=== PATIENT | female | born 1955 | race Caucasian/White ===

== ENCOUNTER 2018-09-23 10:21 | Observation (INO) | payer BC ==
[2018-09-23 11:20] LABS: Bilirubin Negative (Negative); Blood, Urine Negative (Negative); Clarity CLOUDY (Clear); Glucose, Urine (Dipstick) Negative (Negative); Leukocyte Negative (Negative); Nitrite Negative (Negative); Protein, Urine (Dipstick) Negative (Neg-Trace); Specific Gravity, Urine 1.016 (1.002-1.036)
[2018-09-23 11:54] LABS: #Eosinphils 0.1 thou/uL (0.0-0.7); #Monocytes 0.4 thou/uL (0.11-0.59); #Neutrophils 3.5 thou/uL (1.40-6.50); %Basophils 0.1 % (0.0-1.0); %Eosinophils 2.2 % (0.0-10.0); %Lymphocytes 33.4 % (21.0-51.0); %Monocytes 6.2 % (0.0-10.0); %Neutrophils 58.2 % (42.0-75.0); Hemoglobin 6.9 g/dL (12.0-16.0); Mean Corpuscular HGB CONC 32.8 g/dL (32.0-36.0); Mean Corpuscular Hemoglobin 28.7 pg (27.0-31.0); Mean Corpuscular Volume 87.3 fL (78.0-98.0); Mean Platelet Volume 7.7 fL (7.4-10.4); Platelet Count 271 thou/uL (130-400); RBC Distribution Width 13.5 % (11.5-14.5)
[2018-09-23] MEDS ORDERED: Lidocaine 4% Cream 5 GM TUBE w/ Tegaderm ONE (12:03)
[2018-09-23 12:19] LABS: ALT (SGPT) 12 U/L (8-55); AST (SGOT) 12 U/L (5-34); Albumin 4.1 g/dL (3.4-4.8); Alkaline Phosphatase 63 U/L (40-150); Anion Gap 17 mmol/L (10-20); BUN (Urea Nitrogen) 15 mg/dL (9.8-20.1); Bilirubin, Total 0.3 mg/dL (0.2-1.2); Calc. Creatinine Clearance 0 mL/min (70-130); Calcium 9.5 mg/dL (7.8-10.44); Carbon Dioxide 22 mmol/L (23-31); Chloride 105 mmol/L (98-107); Estimated GFR-MDRD 74; Globulin 2.4 g/dL (2.4-3.5); Glucose 106 mg/dL (80-115); Lipase 43 U/L (8-78); Potassium 3.8 mmol/L (3.5-5.1); Protein, Total 6.5 g/dL (6.0-8.3); Sodium 140 mmol/L (136-145)
[2018-09-23 14:27] LABS: Iron Binding Capacity, Total 435 mcg/dL (265-497)
[2018-09-23 14:28] LABS: Iron 133 ug/dL (50-170)
[2018-09-23 14:48] LABS: Ferritin 20.3 ng/mL (10-291); Thyroid Stimulating Hormone 2.5556 uIU/mL (0.35-4.94)
--- NOTE | 2018-09-23 14:58 | HP ---
PRIMARY CARE PHYSICIAN: Dr. Heidi Kyle. REASON FOR ADMISSION: Symptomatic anemia. HISTORY OF PRESENT ILLNESS: A 63-year-old female who has intermittent hemorrhoidal bleeding problem since 2015. Initially, problem was very very mild and not required any attention. For last few months, the patient was having increasing amount of bright red blood per rectum. The patient was referred to screw machine operator, who did upper and lower endoscopy 1 week ago. As per report, the patient was found with only hemorrhoid. The patient was given referral to General Surgery for hemorrhoidectomy. The patient reports that for last 2 weeks she has increasing amount of bleeding from her hemorrhoid, and because of the blood loss, she is experiencing dizziness, fatigue, dyspnea on exertion, palpitation, and near syncopal episode. She denies any chest pain. She denies any loss of consciousness. She is feeling extremely fatigued and tired. The patient reports that her hemoglobin was about 8.9 initially when she saw screw machine operator, and subsequently it was 8.6, and today her hemoglobin is 6.9. The patient was evaluated by Dr. Ibarra and subsequently she was instructed to go to the hospital for admission. The patient never had any blood transfusion in the past. She never had any NSAID abuse. She denies any family history of colon cancer. She denies any weight loss. She had upper and lower endoscopies 1 week ago. REVIEW OF SYSTEMS: CONSTITUTIONAL: Negative for weight loss or gain, ability to conduct usual activities. SKIN: Negative for rash, itching. EYES: Negative for double vision, pain. ENT/MOUTH: Negative for nose bleeding, neck stiffness, pain, tenderness. CARDIOVASCULAR: Negative for palpitations, dyspnea on exertion, orthopnea. RESPIRATORY: Negative for shortness of breath, wheezing, cough, hemoptysis, fever or night sweats. GASTROINTESTINAL: Negative for poor appetite, abdominal pain, heartburn, nausea, vomiting, constipation, or diarrhea. GENITOURINARY: Negative for urgency, frequency, dysuria, nocturia. MUSCULOSKELETAL: Negative for pain, swelling. NEUROLOGIC/PSYCHIATRIC: Negative for anxiety, depression. ALLERGY/IMMUNOLOGIC: Negative for skin rash, bleeding tendency. Please see my HPI for pertinent positives and negatives. All other review of systems reviewed and negative except as mentioned in HPI. PAST MEDICAL HISTORY: Hemorrhoid, hypertension, and dyslipidemia. PAST SURGICAL HISTORY: Bladder suspension x3, appendicectomy, cholecystectomy, and hysterectomy. PAST PSYCHIATRIC HISTORY: Anxiety and depression. SOCIAL HISTORY: The patient is , lives at home with family. No history of tobacco, alcohol, or illicit drug abuse. FAMILY HISTORY: No family history of coronary artery disease or stroke, but the patient's brother diagnosed with anal cancer. No family history of colon cancer. ALLERGIES: NO KNOWN DRUG ALLERGIES. CURRENT HOME MEDICATIONS: 1. Premarin 1.25 mg daily. 2. Lipitor 20 mg daily. 3. Amitriptyline 20 mg daily. 4. Ferrous sulfate 325 mg twice daily. 5. Estradiol 2 mg p.o. daily. EMERGENCY ROOM COURSE: Reviewed. PHYSICAL EXAMINATION: VITAL SIGNS: On arrival, blood pressure 161/90, pulse 112, respiratory rate 18, temperature 97.9, saturation 100% on room air, weight 95.3 kg. GENERAL: The patient is currently alert, awake, in no obvious acute distress. HEENT: Head; normocephalic, atraumatic. Eyes; pupils are round, reactive to light. Conjunctiva pale. ENT; pale mucous membranes. No oral lesion. No pharyngeal erythema. No exudate. NECK: Supple. No JVD. No thyromegaly. No carotid bruit. LUNGS: Clear to auscultation without any rhonchi or rales. CARDIAC: S1 and S2 regular. Tachycardia. Soft systolic murmur noted. No gallop. No rub. ABDOMEN: Soft. Bowel sounds present. Nontender. Nondistended. No organomegaly. No mass. No suprapubic tenderness. BACK: Unremarkable. No CVA tenderness. EXTREMITIES: Upper extremity; passive movement of all joints are normal. Lower extremity; no edema, good distal pulsation. SKIN: Pale. No rash. HEMATOLOGICAL: No lymphadenopathy. NEUROLOGIC: Nonfocal. SIGNIFICANT LABORATORY DATA: CBC; WBC 6.0, hemoglobin 6.9, platelet 271. BMP; sodium 140, potassium 3.8, chloride 105, carbon dioxide 22, anion gap 17, BUN 15, creatinine 0.79, glucose 106, calcium 9.5. LFT; AST 12, ALT 12, alkaline phosphatase 63, albumin 4.1, lipase 43. Urinalysis normal. ASSESSMENT AND PLAN: 1. Symptomatic anemia. The patient most likely has iron-deficiency anemia. The patient already had upper and lower endoscopies which were unrevealing other than hemorrhoids. The patient's history is also consistent with hemorrhoidal bleed. At this point, the patient was already given referral to General Surgery for possible hemorrhoidectomy, which will be done next week. At this point, during this admission, we will transfuse blood. We will do anemia workup. We will transfuse parenteral iron as well as we will repeat blood count tomorrow, and if the patient remains stable, then we will consider discharging her in the next 24 to 48 hours. 2. Dyslipidemia. Continue Lipitor 20 mg p.o. daily. 3. Hypertension. We will start amlodipine 5 mg p.o. daily. 4. Anxiety and depression. Continue amitriptyline 20 mg p.o. daily. 5. Deep venous thrombosis prophylaxis; no Lovenox because of bleeding. GI prophylaxis; Pepcid 20 mg p.o. b.i.d. CODE STATUS: The patient is full code. The patient's is surrogate decision maker. DISPOSITION PLAN: Based on clinical course, we are expecting the patient's stay in hospital 24 to 48 hours. Plan of care discussed with the patient and family member at bedside. Job ID: [id number]
[2018-09-23] MEDS ORDERED: Eucerin (Mineral Oil/Petrolatum,White) 30 gm Jar TOP PRN (16:02)
[2018-09-23] MEDS ORDERED: Calcium Carbonate 500 MG ChewTAB PO PRN (16:02)
[2018-09-23] MEDS ORDERED: Acetaminophen 325 MG TAB PO PRN (16:02)
[2018-09-23] MEDS ORDERED: HYDROcodone/Acetaminophen 5/325 mg Tablet PO PRN (16:02)
[2018-09-23] MEDS ORDERED: Zolpidem Tartrate 5 MG TAB PO PRN (16:02)
[2018-09-23] MEDS ORDERED: Artificial Tear Sol 15 ML BOT EA EYE PRN (16:02)
[2018-09-23] MEDS ORDERED: Bisacodyl 10 MG SUPP PR PRN (16:02)
[2018-09-23] MEDS ORDERED: Sodium Chloride 0.65% Nasal 44 ML BOT EA NARE PRN (16:02)
[2018-09-23] MEDS ORDERED: Loperamide HCl 2 MG CAP PO PRN (16:02)
[2018-09-23] MEDS ORDERED: Ondansetron ODT 4 MG TAB PO PRN (16:02)
[2018-09-23] MEDS ORDERED: Iron Sucrose Complex 200 MG in Sodium Chloride 0.9% 250 ML 250 ML IVPB SCH (16:02)
[2018-09-23] MEDS ORDERED: Loratadine 10 MG TAB PO PRN (16:02)
[2018-09-23] MEDS ORDERED: hydrALAZINE 20 MG/ML VIAL SLOW IVP PRN (16:02)
[2018-09-23] MEDS ORDERED: Ondansetron PF 4 MG/2 ML Vial IVP PRN (16:02)
[2018-09-23] MEDS ORDERED: Diabetic Tussin 200 MG/10 ML UDCUP PO PRN (16:02)
[2018-09-23] MEDS ORDERED: Cepastat Lozenges 1 LOZ PO PRN (16:02)
[2018-09-23] MEDS ORDERED: Senokot S 8.6-50 MG TAB PO PRN (16:02)
[2018-09-23] MEDS ORDERED: Amlodipine 5 MG TAB PO SCH (16:30)
[2018-09-23] MEDS ORDERED: Iron, Sodium Ferric Gluconate 250 MG in Sodium Chloride 0.9% 100 ML IVPB SCH (17:00)
[2018-09-23 17:10] VITALS: BMI 33.3
[2018-09-23 19:08] LABS: #Eosinphils 0.1 thou/uL (0.0-0.7); #Lymphocytes 2.1 thou/uL (1.20-3.40); #Monocytes 0.4 thou/uL (0.11-0.59); #Neutrophils 3.8 thou/uL (1.40-6.50); %Basophils 0.6 % (0.0-1.0); %Eosinophils 1.6 % (0.0-10.0); %Lymphocytes 32.2 % (21.0-51.0); %Monocytes 5.7 % (0.0-10.0); %Neutrophils 59.9 % (42.0-75.0); Hemoglobin 7.6 g/dL (12.0-16.0); Mean Corpuscular HGB CONC 33.4 g/dL (32.0-36.0); Mean Corpuscular Hemoglobin 29.1 pg (27.0-31.0); Mean Corpuscular Volume 87.1 fL (78.0-98.0); Mean Platelet Volume 7.3 fL (7.4-10.4); Platelet Count 251 thou/uL (130-400); RBC Distribution Width 13.4 % (11.5-14.5); White Blood Cell (WBC) Count 6.4 thou/uL (4.8-10.8)
[2018-09-23 19:13] LABS: INR-International Normal Ratio 1.1; PTT 32.9 SEC (22.9-36.1); Prothrombin Time 14.7 SEC (12.0-14.7)
[2018-09-23 19:34] LABS: ALT (SGPT) 13 U/L (8-55); AST (SGOT) 13 U/L (5-34); Albumin 3.9 g/dL (3.4-4.8); Alkaline Phosphatase 61 U/L (40-150); Anion Gap 15 mmol/L (10-20); BUN (Urea Nitrogen) 13 mg/dL (9.8-20.1); Bilirubin, Total 0.4 mg/dL (0.2-1.2); Calc. Creatinine Clearance 119 mL/min (70-130); Calcium 9.4 mg/dL (7.8-10.44); Carbon Dioxide 25 mmol/L (23-31); Chloride 106 mmol/L (98-107); Estimated GFR-MDRD 75; Globulin 2.7 g/dL (2.4-3.5); Glucose 96 mg/dL (80-115); Potassium 3.6 mmol/L (3.5-5.1); Protein, Total 6.6 g/dL (6.0-8.3); Sodium 142 mmol/L (136-145)
[2018-09-23] MEDS: Amitriptyline HCl 10 MG TAB PO SCH (20:23)
[2018-09-23] MEDS: Famotidine 20 MG TAB PO SCH (20:23)
[2018-09-23] MEDS: Atorvastatin Calcium 20 MG TAB PO SCH (20:23)
--- NOTE | 2018-09-24 01:19 | CON ---
DATE OF CONSULTATION: 09/23/2018 REASON FOR CONSULT: Hemorrhoids. HISTORY OF PRESENT ILLNESS: Ms. Cline is a 63-year-old woman with longstanding hemorrhoids which often bleed and sometimes prolapse. They usually go back in on their home, but sometimes she has to reduce them manually. She states that they have flared intermittently for many years but then 2 weeks ago, they flared and they have continued to bleed with every bowel movement or any sort of straining even to urinate. She states that there is blood in the toilet paper and in the water. She went to Dr. Ibarra, who performed an upper and lower scope on her on Wednesday. He removed a small polyp, but otherwise did not see anything abnormal in her colon. Shortly after her scope, she started bleeding again, so he went back in and all he saw were inflamed internal hemorrhoids with stigmata of recent bleeding but no active bleeding. The patient states that she is sure that the blood is coming from her rectal area and that she bleeds pretty much anytime she squats even to urinate. She has been lightheaded and dizzy for a few days. She states that she bled a lot with a bowel prep for her colonoscopy. She was found to be significantly anemic, so she was called into the hospital to be admitted for transfusion. Since being transfused, she is feeling much better. PAST MEDICAL HISTORY: Hypertension and hyperlipidemia. PAST SURGICAL HISTORY: Cholecystectomy in her 30s, hysterectomy and recent anterior and posterior repair last year, and appendectomy in the past. SOCIAL HISTORY: The patient does not smoke, drink, or use illicit drugs. She is and her is at the bedside. FAMILY HISTORY: Anal cancer, but no colon cancer. ALLERGIES: NO KNOWN DRUG ALLERGIES. OUTPATIENT MEDICATIONS: Include: 1. Premarin. 2. Lipitor. 3. Amitriptyline. 4. Iron. 5. Estradiol. REVIEW OF SYSTEMS: Ten-system review of systems is negative except per HPI. PHYSICAL EXAMINATION: VITAL SIGNS: The patient is afebrile, mildly tachycardic, although she states that her heart rate is down from before the transfusion. Blood pressure 148/67, respirations 16, and 97% saturated on room air. GENERAL: Reveals a healthy-appearing woman, in no acute distress. She is slightly pale. HEENT: Unremarkable. NECK: Supple without lymphadenopathy or thyroid nodules. HEART: Slightly tachycardic but regular. No murmurs, rubs, or gallops are appreciated. LUNGS: Clear to auscultation bilaterally. ABDOMEN: Soft, nontender, and nondistended without palpable hernias or masses. EXTREMITIES: Warm and well perfused without edema. NEUROLOGIC: No focal deficits. PSYCHIATRIC: Alert, oriented, and appropriate. Digital rectal examination was performed. No visible external hemorrhoids. Moderate to large circumferential internal hemorrhoids are palpated on anoscopy. She has multiple large internal hemorrhoids circumferentially down to the dentate line with mild prolapse and irritation of the mucosa, but no active bleeding. No palpable rectal masses. LABORATORY DATA: Hemoglobin on admission was 6.9, white count 6, platelets 271. Electrolytes were unremarkable and LFTs were normal. TSH was 2.5. Ferritin 20, iron 133. UA was clear with no blood. ASSESSMENT: Bleeding internal hemorrhoids. PLAN: Stapled hemorrhoidopexy. We discussed the relative pros and cons of stapled hemorrhoidopexy versus open hemorrhoidectomy. Since she does not have a significant external component, I favor the stapled hemorrhoidopexy as being less painful. Also, this would allow us to address the entire circumference of the anal canal, whereas I do no more than three columns in an open hemorrhoidectomy. She does understand that she has significant residual hemorrhoidal tissue after the stapled hemorrhoidopexy, addition of an open hemorrhoidectomy may be necessary. Inherent risks of the hemorrhoidopexy were discussed. These include, but are not limited to, bleeding, infection, risks of anesthesia, damage to nearby structures like the vagina and sphincter, need for other procedures and postoperative pain. Typically, this is less than with an open hemorrhoidectomy, but can still be significant. She understands the importance of maintaining a good bowel regimen postoperatively and avoiding straining and constipation. All of her questions were answered and she has been proceeded for the operating room tomorrow. Job ID: [id number]
[2018-09-24] MEDS ORDERED: Fleet Enema 133 ML BOT FS SCH (04:30)
[2018-09-24] MEDS ORDERED: Lidocaine 2% Jelly 5 ML TUBE ONE ×2 (07:21→09:16)
[2018-09-24] MEDS ORDERED: Midazolam HCl 2 mg/2 ml Vial ONE (07:21)
[2018-09-24] MEDS ORDERED: Fentanyl 100 MCG/2 ML VIAL ONE (07:21)
[2018-09-24 07:47] LABS: Anion Gap 16 mmol/L (10-20); BUN (Urea Nitrogen) 15 mg/dL (9.8-20.1); Calc. Creatinine Clearance 108 mL/min (70-130); Calcium 9.3 mg/dL (7.8-10.44); Carbon Dioxide 21 mmol/L (23-31); Chloride 106 mmol/L (98-107); Estimated GFR-MDRD 67; Glucose 98 mg/dL (80-115); Potassium 3.8 mmol/L (3.5-5.1); Sodium 139 mmol/L (136-145)
[2018-09-24] MEDS ORDERED: cefOXitin Sodium/Dextrose,Iso 2 GM in Premix Bag 1 BAG IVPB SCH (08:00)
[2018-09-24] MEDS ORDERED: Iron Sucrose Complex 200 MG in Sodium Chloride 0.9% 250 ML 250 ML IVPB SCH (08:00)
[2018-09-24 08:16] LABS: #Eosinphils 0.1 thou/uL (0.0-0.7); #Lymphocytes 1.9 thou/uL (1.20-3.40); #Monocytes 0.5 thou/uL (0.11-0.59); #Neutrophils 3.7 thou/uL (1.40-6.50); %Basophils 0.5 % (0.0-1.0); %Lymphocytes 30.2 % (21.0-51.0); %Neutrophils 59.4 % (42.0-75.0); Hemoglobin 7.9 g/dL (12.0-16.0); Mean Corpuscular HGB CONC 32.6 g/dL (32.0-36.0); Mean Corpuscular Hemoglobin 29.4 pg (27.0-31.0); Mean Corpuscular Volume 90.2 fL (78.0-98.0); Mean Platelet Volume 7.4 fL (7.4-10.4); Platelet Count 249 thou/uL (130-400); RBC Distribution Width 13.9 % (11.5-14.5); Red Blood Cell (RBC) Count 2.69 mill/uL (4.20-5.40); White Blood Cell (WBC) Count 6.2 thou/uL (4.8-10.8)
[2018-09-24] MEDS: Fish Oil 1,000 MG CAP PO SCH (09:00)
[2018-09-24] MEDS: Famotidine 20 MG TAB PO SCH ×2 (09:00→20:15)
[2018-09-24] MEDS ORDERED: Amlodipine 5 MG TAB PO SCH (09:00)
[2018-09-24] MEDS: Ferrous Sulfate 325 MG TAB PO SCH ×2 (09:00→20:15)
[2018-09-24] MEDS: Estradiol 1 MG TAB PO SCH (09:00)
[2018-09-24] MEDS ORDERED: Bupivacaine HCl 0.5%/Epinephrine 1:200,000/PF 30 ml Vial ONE (09:15)
[2018-09-24] MEDS ORDERED: Ondansetron HCl/PF 4 MG/2 ML Vial IVP PRN (09:22)
[2018-09-24] MEDS ORDERED: HYDROmorphone 2 MG/ML VIAL SLOW IVP PRN (09:22)
[2018-09-24] MEDS ORDERED: Promethazine HCl 25 MG/ML VIAL SLOW IVP PRN (09:22)
[2018-09-24] MEDS ORDERED: Promethazine HCl 25 MG/ML VIAL IM PRN (09:22)
--- NOTE | 2018-09-24 09:57 | PDOC.PN ---
- Subjective Encounter Start Date: 09/24/18 Encounter Start Time: 15:00 -: old records requested/rev Patient seen and examined. No new complaints. No overnight events - Objective Resuscitation Status - Order Detail: 09/23/18 13:59 Resuscitation Status Routine Resuscitation Status: FULL: Full Resuscitation MAR Reviewed: Yes Vital Signs & Weight: Vital Signs (12 hours) Temp Pulse Resp BP Pulse Ox 09/24/18 04:00 97.6 F 101 H 18 109/68 97 09/24/18 00:00 98.2 F 99 18 112/70 92 L Weight Weight 219 lb I&O: 09/23/18 09/24/18 09/25/18 06:59 06:59 06:59 Intake Total 600 Balance 600 Result Diagrams: 09/25/18 00:39 09/24/18 07:11 Phys Exam - Physical Examination Constitutional: NAD HEENT: PERRLA, moist MMs, sclera anicteric Neck: no JVD, supple Respiratory: no wheezing, no rales, no rhonchi Cardiovascular: RRR, no significant murmur, no rub Gastrointestinal: soft, non-tender, no distention, positive bowel sounds Musculoskeletal: no edema, pulses present Neurological: non-focal, normal sensation, moves all 4 limbs Psychiatric: normal affect, A&O x 3 Skin: no rash, normal turgor Dx/Plan (1) Symptomatic anemia Code(s): D64.9 - ANEMIA, UNSPECIFIED Status: Acute (2) Bleeding hemorrhoid Code(s): K64.9 - UNSPECIFIED HEMORRHOIDS Status: Acute (3) Anemia due to acute blood loss Code(s): D62 - ACUTE POSTHEMORRHAGIC ANEMIA Status: Acute (4) Obesity (BMI 30.0-34.9) Code(s): E66.9 - OBESITY, UNSPECIFIED Status: Chronic (5) Anxiety and depression Code(s): F41.9 - ANXIETY DISORDER, UNSPECIFIED; F32.9 - MAJOR DEPRESSIVE DISORDER, SINGLE EPISODE, UNSPECIFIED Status: Chronic (6) GERD (gastroesophageal reflux disease) Code(s): K21.9 - GASTRO-ESOPHAGEAL REFLUX DISEASE WITHOUT ESOPHAGITIS Status: Chronic (7) Dyslipidemia Code(s): E78.5 - HYPERLIPIDEMIA, UNSPECIFIED Status: Chronic - Plan cont current plan of care * today will give one dose of IV venofer * today pt is scheduled for haemorrhoids surgery * will monitor post op in hospital * medication reviewed as below * symptomatic treatment. * repeat labs tomorrow Review of Systems - Review of Systems ENT: negative: Ear Pain, Ear Discharge, Nose Pain, Nose Discharge, Nose Congestion, Mouth Pain, Mouth Swelling, Throat Pain, Throat Swelling, Other Respiratory: negative: Cough, Dry, Shortness of Breath, Hemoptysis, SOB with Excertion, Pleuritic Pain, Sputum, Wheezing Cardiovascular: negative: chest pain, palpitations, orthopnea, paroxysmal nocturnal dyspnea, edema, light headedness, other Gastrointestinal: negative: Nausea, Vomiting, Abdominal Pain, Diarrhea, Constipation, Melena, Hematochezia, Other Genitourinary: negative: Dysuria, Frequency, Incontinence, Hematuria, Retention , Other Musculoskeletal: negative: Neck Pain, Shoulder Pain, Arm Pain, Back Pain, Hand Pain, Leg Pain, Foot Pain, Other - Medications/Allergies Allergies/Adverse Reactions: Allergies Allergy/AdvReac Type Severity Reaction Status Date / Time No Known Drug Allergies Allergy Verified 09/23/18 17:23 Medications: Current Medications Acetaminophen (Tylenol) 650 mg PO Q4H PRN PRN Reason: Headache/Fever/Mild Pain (1-3) Hydrocodone Bitart/Acetaminophen ([place] 5/325) 1 tab PO Q4H PRN PRN Reason: Moderate Pain (4-6) Amitriptyline HCl (Elavil) 20 mg PO [facility] Last Admin: 09/23/18 20:23 Dose: 20 mg Amlodipine Besylate (Norvasc) 5 mg PO DAILY [facility] Artificial Tears (Tears Renewed 15ml Bottle) 2 drop EA EYE PRN PRN PRN Reason: Dry Eyes Atorvastatin Calcium (Lipitor) 20 mg PO [facility] Last Admin: 09/23/18 20:23 Dose: 20 mg Bisacodyl (Dulcolax) 10 mg NM DAILYPRN PRN PRN Reason: Constipation Calcium Carbonate (Tums) 1,000 mg PO Q4H PRN PRN Reason: Heartburn or Indigestion Cholecalciferol (Vitamin D3) 1,000 units PO DAILY [facility] Estradiol (Estrace) 2 mg PO DAILY [facility] Famotidine (Pepcid) 20 mg PO BID [facility] Last Admin: 09/23/18 20:23 Dose: 20 mg Fentanyl (Pacu-Sublimaze) 50 mcg SLOW IVP Q10MIN PRN PRN Reason: Moderate to Severe Pain (6-10) Stop: 09/24/18 12:22 Ferrous Sulfate (Feosol) 325 mg PO BID [facility] Fish Oil (Fish Oil) 1,000 mg PO DAILY [facility] Guaifenesin (Robitussin Sf) 200 mg PO Q4H PRN PRN Reason: Cough Hydralazine HCl (Apresoline) 10 mg SLOW IVP Q4H PRN PRN Reason: SBP > 180 and HR < 70 Hydromorphone HCl (Pacu-Dilaudid) 0.5 mg SLOW IVP Q10MIN PRN PRN Reason: Moderate to Severe Pain (6-10) Stop: 09/24/18 12:22 Iron Sucrose 200 mg/ Sodium (Chloride) 260 mls @ 125 mls/hr IVPB 0800 [facility] Stop: 09/24/18 10:05 Cefoxitin Sodium/Dextrose 2 gm (/ Device) 50 mls @ 100 mls/hr IVPB 0800 [facility] Stop: 09/24/18 10:00 Loperamide HCl (Imodium) 2 mg PO PRN PRN PRN Reason: Diarrhea/Loose Stools Loratadine (Claritin) 10 mg PO DAILYPRN PRN PRN Reason: Sinus Symptoms Mineral Oil/White Petrolatum (Eucerin Cream) 0 gm TOP BIDPRN PRN PRN Reason: Dry Skin Ondansetron HCl (Zofran Odt) 4 mg PO Q6H PRN PRN Reason: Nausea/Vomiting Ondansetron HCl (Zofran) 4 mg IVP Q6H PRN PRN Reason: Nausea/Vomiting Ondansetron HCl (Pacu-Zofran) 4 mg IVP ONE PRN PRN Reason: Nausea/Vomiting Stop: 09/24/18 12:22 Promethazine HCl (Pacu-Phenergan) 6.25 mg SLOW IVP ONE PRN PRN Reason: Nausea/Vomiting Stop: 09/24/18 12:22 Promethazine HCl (Pacu-Phenergan) 6.25 mg IM ONE PRN PRN Reason: Nausea/Vomiting Stop: 09/24/18 12:22 Senna/Docusate Sodium (Senokot S) 2 tab PO BID PRN PRN Reason: Constipation Sodium Biphosphate/Sodium Phosphate (Fleet Enema) 133 ml FS ONCALL-OR UNIQUE Stop: 09/24/18 11:00 Last Admin: 09/24/18 06:28 Dose: 133 ml Sodium Chloride ([place] Nasal [place] 0.65%) 0 ml EA NARE QIDPRN PRN PRN Reason: Nasal Congestion Throat Lozenges (Cepastat Lozenges) 1 anita PO Q2H PRN PRN Reason: Sore Throat Zolpidem Tartrate (Ambien) 5 mg PO HSPRN PRN PRN Reason: Insomnia
[2018-09-24] MEDS ORDERED: traMADol HCl 50 MG TAB PO PRN (10:32)
[2018-09-24] MEDS ORDERED: HYDROcodone/Acetaminophen 5/325 mg Tablet PO PRN (10:33)
[2018-09-24] MEDS ORDERED: Lidocaine 1% PF 5 ML VIAL ONE (13:59)
[2018-09-24] MEDS ORDERED: Ondansetron PF 4 MG/2 ML Vial ONE (13:59)
[2018-09-24] MEDS ORDERED: PHENYLEPHRINE-NS 100 MCG/ML 10 ML SYRINGE ONE (13:59)
[2018-09-24] MEDS ORDERED: PROPOFOL 200 MG/20 ML VIAL ONE (13:59)
[2018-09-24] MEDS ORDERED: Rocuronium Bromide 10 MG/ML (10ML VIAL) ONE (13:59)
[2018-09-24] MEDS ORDERED: Glycopyrrolate 0.2 MG/ML 5 ML SYRINGE ONE (13:59)
[2018-09-24] MEDS ORDERED: Dexamethasone 20 MG/5 ML VIAL ONE (13:59)
[2018-09-24] MEDS ORDERED: Hydrocodone-Acetamin 15 ML UDCUP PO PRN (14:44)
--- NOTE | 2018-09-24 15:02 | PRG ---
DATE OF SERVICE: 09/24/2018 SUBJECTIVE: Ms. Cline had her hemorrhoidectomy today. She did receive another unit of blood today. Pain is controlled. She is having no bleeding as she is receiving some IV iron now. OBJECTIVE: VITAL SIGNS: Temperature is 98, pulse 81, and blood pressure 110/69. GENERAL: She is comfortable. She is resting in bed She is on liquid diet. ASSESSMENT AND PLAN: 1. Anemia from rectal bleeding. This was hemorrhoidal. She underwent hemorrhoidectomy today. Plan, hopefully, she will be able to go home tomorrow. Postop instructions and treatment per her surgeon. 2. She will follow with me in 6 to 8 weeks. She has ongoing issues with postprandial diarrhea, we can address that at that time, but for now, we do not want to make her constipated, having recent hemorrhoidectomy. Job ID: [id number]
--- NOTE | 2018-09-24 16:22 | PDOC.OP ---
Operative Note - Operative Note Operative Note: PROCEDURE: Stapled hemorrhoidopexy DATE OF PROCEDURE: 09/24/2018 SURGEON: Page Sosa M.D. PREOPERATIVE DIAGNOSES: Bleeding internal hemorrhoids POSTOPERATIVE DIAGNOSIS: Bleeding internal hemorrhoid HISTORY: Patient with symptomatic anemia due to 2 weeks of bleeding from internal hemorrhoids. These are diffuse and circumferential and prolapsing. No significant external component. No active bleeding from any single hemorrhoid although multiple hemorrhoids have stigmata of recent bleeding. Stapled hemorrhoid pexy was recommended due to the diffuse nature of the hemorrhoidal disease. PROCEDURE IN DETAIL: After informed consent was obtained and a fleets enema administered the patient was taken to the operating room she was placed in supine position and general endotracheal anesthesia was administered. She was then moved to the prone jackknife position and prepped and draped in standard sterile fashion. The anal canal was dilated and the obturator placed. The anoderm was milked outward and the obturator secured to the skin with sutures the anus scope was then placed through the obturator and a mucosal and submucosal pursestring 2-0 Prolene suture placed circumferentially 4 cm from the anal verge. This was tightened around the examining finger and were noted. A vaginal examination was performed and the wall of vagina was not impinged upon or moving with the suture line. The PPH stapler was then placed into the anus and the anvil placed through the pursestring suture which was secured and brought out through the side passages. The stapler was advanced and the suture tightened pulling a ring of hemorrhoidal tissue into the stapler. The stapler was completely tightened and pressure held for 30 seconds. The stapler was then fired and pressure held for another 30 seconds. The stapler was loosened and the PPH stapler removed. A complete intact ring of hemorrhoidal tissue was confirmed and sent to pathology. The suture line was carefully examined and a few small oozing spots controlled with chromic suture. The obturator was then removed and the anal canal carefully examined circumferentially. The hemorrhoids were no longer prolapsing and were much reduced in size. There were still a few inflamed areas but no active bleeding. A Gelfoam plug was placed and the patient was moved back to the supine position and extubated and taken to recovery in good condition. Estimated blood loss was minimal. There are no complications. Specimen is hemorrhoids
[2018-09-24 19:09] LABS: Hemoglobin 9.6 g/dL (12.0-16.0); Mean Corpuscular HGB CONC 33.6 g/dL (32.0-36.0); Mean Corpuscular Volume 86.3 fL (78.0-98.0); Mean Platelet Volume 7.6 fL (7.4-10.4); Platelet Count 304 thou/uL (130-400); RBC Distribution Width 14.2 % (11.5-14.5); White Blood Cell (WBC) Count 9.3 thou/uL (4.8-10.8)
[2018-09-24 19:24] LABS: Band 1 % (5-11); Lymphocytes 2 % (21-51); MDiff Complete? YES; Monocytes 2 % (0-10); Neutrophil 95 % (42-75); Platelet Morphology Comment Appears Adequate
[2018-09-24] MEDS: Amitriptyline HCl 10 MG TAB PO SCH (20:15)
[2018-09-24] MEDS: Docusate 100 MG CAP PO SCH (20:16)
[2018-09-24] MEDS: Atorvastatin Calcium 20 MG TAB PO SCH (20:16)
[2018-09-25 00:49] LABS: #Eosinphils 0.1 thou/uL (0.0-0.7); #Lymphocytes 0.9 thou/uL (1.20-3.40); #Monocytes 0.5 thou/uL (0.11-0.59); #Neutrophils 6.4 thou/uL (1.40-6.50); %Basophils 0.3 % (0.0-1.0); %Eosinophils 1.1 % (0.0-10.0); %Lymphocytes 10.9 % (21.0-51.0); %Monocytes 6.1 % (0.0-10.0); %Neutrophils 81.7 % (42.0-75.0); Hemoglobin 8.6 g/dL (12.0-16.0); Mean Corpuscular HGB CONC 33.4 g/dL (32.0-36.0); Mean Corpuscular Hemoglobin 29.5 pg (27.0-31.0); Mean Corpuscular Volume 88.4 fL (78.0-98.0); Mean Platelet Volume 7.4 fL (7.4-10.4); Platelet Count 263 thou/uL (130-400); RBC Distribution Width 14.5 % (11.5-14.5); Red Blood Cell (RBC) Count 2.91 mill/uL (4.20-5.40); White Blood Cell (WBC) Count 7.8 thou/uL (4.8-10.8)
[2018-09-25 07:43] LABS: #Eosinphils 0.1 thou/uL (0.0-0.7); #Lymphocytes 1.6 thou/uL (1.20-3.40); #Monocytes 0.7 thou/uL (0.11-0.59); #Neutrophils 7.3 thou/uL (1.40-6.50); %Basophils 0.2 % (0.0-1.0); %Eosinophils 1.2 % (0.0-10.0); %Lymphocytes 16.7 % (21.0-51.0); %Monocytes 7.4 % (0.0-10.0); %Neutrophils 74.5 % (42.0-75.0); Hemoglobin 8.6 g/dL (12.0-16.0); Mean Corpuscular HGB CONC 33.3 g/dL (32.0-36.0); Mean Platelet Volume 7.8 fL (7.4-10.4); Platelet Count 285 thou/uL (130-400); RBC Distribution Width 14.6 % (11.5-14.5); Red Blood Cell (RBC) Count 2.97 mill/uL (4.20-5.40); White Blood Cell (WBC) Count 9.8 thou/uL (4.8-10.8)
[2018-09-25] MEDS ORDERED: Iron Sucrose Complex 200 MG in Sodium Chloride 0.9% 250 ML 250 ML IVPB SCH (08:00)
[2018-09-25] MEDS ORDERED: Polyethylene Glycol 3350 17 GM Packet PO SCH (09:00)
[2018-09-25] MEDS: Fish Oil 1,000 MG CAP PO SCH (09:06)
[2018-09-25] MEDS: Ferrous Sulfate 325 MG TAB PO SCH (09:07)
[2018-09-25] MEDS: Famotidine 20 MG TAB PO SCH (09:07)
[2018-09-25] MEDS: Estradiol 1 MG TAB PO SCH (09:07)
[2018-09-25] MEDS: Docusate 100 MG CAP PO SCH (09:07)
--- NOTE | 2018-09-25 09:59 | DIS ---
DATE OF ADMISSION: 09/23/2018 DATE OF DISCHARGE: 09/25/2018 PRIMARY CARE PHYSICIAN: Dr. Heidi Kyle. DISCHARGE DISPOSITION: Home. PRIMARY DISCHARGE DIAGNOSES: 1. Bleeding hemorrhoid. 2. Status post stapled hemorrhoidopexy. 3. Anemia due to acute blood loss. 4. Symptomatic anemia. SECONDARY DISCHARGE DIAGNOSES: Obesity, dyslipidemia, gastroesophageal reflux disease, anxiety, and depression. PRIMARY PROCEDURE/OPERATION: Stapled hemorrhoidopexy by Dr. Sosa. RADIOLOGICAL INVESTIGATION: None. SIGNIFICANT LABORATORY DATA: WBC 9.8, hemoglobin 8.6, and platelet 285. INR 1.1. Sodium 139, potassium 3.8, and creatinine 0.86. LFT normal. TSH 2.55. Urinalysis normal. DISCHARGE MEDICATIONS: 1. Amitriptyline 20 mg p.o. at bedtime. 2. Lipitor 20 mg p.o. daily. 3. Biotin 1 mg p.o. daily. 4. Vitamin D3 of 1000 units p.o. daily. 5. Nexium 20 mg p.o. daily. 6. Estradiol 2 mg p.o. daily. 7. Ferrous sulfate 325 mg p.o. b.i.d. 8. Fish oil 1000 mg p.o. daily. 9. Multivitamin 1 tablet p.o. daily. 10. Macrobid 100 mg p.o. at bedtime. CONTRAINDICATION: None. CODE STATUS: Full code. INPATIENT ED PHYSICIANS: Dr. Ibarra was following while in hospital. Dr. Sosa was consulted for her stapled hemorrhoidopexy. TEST RESULT PENDING ON DISCHARGE: None. ALLERGIES: NO KNOWN DRUG ALLERGIES. DISCHARGE PLAN: Posthospital, the patient will follow up with primary care physician and Dr. Sosa as instructed. HOSPITAL COURSE: A 63-year-old female, who had recently outpatient upper and lower endoscopy, which was unremarkable. The patient was found with bleeding hemorrhoid. The patient was having increasing amount of blood through the hemorrhoid and that is why she was recommended to go to the hospital for admission. On admission, her hemoglobin was 6.9. We transfused her total 2 units of blood. While in hospital, we also gave her iron infusion for her iron deficiency anemia. Gastroenterology is consulted. Dr. Sosa for a hemorrhoidopexy, which was done during this admission. Postoperatively, the patient did not have any complications. She is doing very well. The patient will continue all her previous medication. I have seen and examined the patient at bedside today. PHYSICAL EXAMINATION: VITAL SIGNS: Currently, temperature 98.0, pulse 93, respiratory rate 16, saturation 91%, and blood pressure 104/62. Weight 219 pounds. GENERAL: The patient is currently alert and oriented, no acute distress. HEAD: Normocephalic and atraumatic. LUNGS: Clear without any rhonchi. CARDIAC: S1 and S2. Regular without any murmur. ABDOMEN: Soft and benign without any tenderness. EXTREMITIES: No edema. NEUROLOGIC: Nonfocal examination. The patient is medically stable for discharge later on today. Job ID: [id number]
[2018-09-25 10:12] VITALS: TEMP 97.8
[2018-09-25 12:48] VITALS: BP 129/78
--- NOTE | 2018-09-25 14:38 | PDOC.GSPN ---
Surgery Progress Note: Subj - Subjective Narrative: Patient feels fine this morning. She has not had any bleeding or pain since her operation. She has used bathroom without any rectal bleeding but hasn't had a bowel movement yet. H&H is stable since yesterday. From a surgical standpoint she should be stable for discharge. She can follow up in my clinic in 1-3 weeks. Surgery Progress Note: Obj - Vital signs Vital signs: Vital Signs - Most Recent Temp Pulse Resp BP Pulse Ox 97.8 F 91 18 129/78 97 09/25/18 12:47 09/25/18 12:47 09/25/18 12:47 09/25/18 12:47 09/25/18 12:47 Surgery Progress Note: Results - Labs Result Diagrams: 09/25/18 07:06 09/24/18 07:11 Lab results: Laboratory Results - last 24 hr 09/25/18 07:06 WBC 9.8 RBC 2.97 L Hgb 8.6 L Hct 25.9 L MCV 87.0 MCH 29.0 MCHC 33.3 RDW 14.6 H Plt Count 285 MPV 7.8 Neutrophils % 74.5 Lymphocytes % 16.7 L Monocytes % 7.4 Eosinophils % 1.2 Basophils % 0.2 Neutrophils # 7.3 H Lymphocytes # 1.6 Monocytes # 0.7 H Eosinophils # 0.1 Basophils # 0.0
--- NOTE | 2018-09-26 09:28 | CON ---
DATE OF CONSULTATION: HISTORY OF PRESENT ILLNESS: Ms. Cline is a pleasant 63-year-old female, who was admitted to the hospital for persistent rectal bleeding and now symptomatic anemia. About 2 weeks ago on September 08, she had an episode of rectal bleeding that was bright red and painless and stopped, and then 2 days later, it resumed. After few days, she came in and saw me in the office, and she was found to have a hemoglobin of around 8 to 9. This was surprising as her previous hemoglobin had been in the 12 to 13 range this past summer with her primary physician, Dr. Heidi Kyle at [facility]. Initially, we decided to treat her with topical therapy and prescribed Anusol suppositories 25 mg q.12 hours, sitz baths, and stool softeners, but she could not afford the suppositories, which were apparently very expensive and she did not do the other treatment. When her hemoglobin came back low, we decided to go ahead and proceed with endoscopy to rule out other lesions as it seen to be a little bit out of proportion to the amount of bleeding she was describing. She came in this past Wednesday, for an EGD and colonoscopy. Her blood count on the dropped further to 8.6. Her EGD was normal. Her colonoscopy was normal except for a small polyp. The colon polyp was adenoma. At that time, I saw no signs of bleeding whatsoever. She did have prominent internal hemorrhoids. However, right after we finished the exam, she reports she passed blood in the bathroom and we went ahead and brought her back to the endoscopy unit and performed a flexible sigmoidoscopy and again, the only thing we saw was prominent external hemorrhoids involving the anal canal with some superficial blood vessels. A decision at that time was made to place her on topical steroid cream that she could afford and we referred to Dr. Armand Hester. She states she has an appointment, Wednesday on September 26. However, she called the office today noting that she was feeling weak and dizzy as she had been having a couple of stools per day, which were bloody and that she had not heard about her hemoglobin report from yesterday yet. That hemoglobin came back at 6.8, so this morning, we were going to directly admit her, although there were no beds available, so she was sent to the emergency room as she has symptomatic anemia. PAST MEDICAL HISTORY: Hypertension and hyperlipidemia. PAST SURGICAL HISTORY: Appendectomy, cholecystectomy, hysterectomy, previous bladder suspension several times secondary to recurrent UTIs, most recently back in February she had a bladder suspension with A and P repair. Her surgeon states she had some type of repair of the rectal area as well. REVIEW OF SYSTEMS: Negative for weight loss, fever, chills, rashes, myalgia, arthralgias. She states she did have some bleeding like this in the past in [place] in 2014, at which time she had a colonoscopy and a few polyps removed. It was felt she had hemorrhoidal bleeding, but it stopped on its own. She denies chest pain or shortness of breath. She has had some dyspnea on exertion recently and some mild orthopnea. She has had no edema, no allergies, no asthma. SOCIAL HISTORY: She is . Her is here with her. She does not smoke, drink, or use drugs. FAMILY HISTORY: Negative for colon cancer or liver disease. She did have a brother with anal cancer. MEDICATIONS: She is on; 1. Premarin. 2. Lipitor. 3. Amitriptyline. 4. Iron. 5. Estradiol. PHYSICAL EXAMINATION: GENERAL: She is resting comfortably in bed. Slightly pale, she has blood hanging for transfusion. VITAL SIGNS: Pulse is 105, blood pressure 148/67, temperature 97, respiration 16. LUNGS: Clear. HEART: Regular rate and rhythm without clicks or murmurs. ABDOMEN: Soft and nontender with no hepatosplenomegaly. EXTREMITIES: No clubbing, cyanosis, or edema. RECTAL: Shows some internal hemorrhoids bearing down, but there was no active bleeding present. LABORATORY DATA: White count 6, hemoglobin 6.9, platelet count 271. Complete metabolic profile normal. TSH normal. B12 normal. Iron was 20 with a saturation and a ferritin of 3 back on 09/19. ASSESSMENT: Rectal bleeding. This seems to be hemorrhoidal bleeding. She does have some very inflamed internal hemorrhoids on her colonoscopy done last week and the mucosa was a little bit atypical, just about the dentate line. We did not biopsy this due to her ongoing bleeding. I think this is the source of her bleeding. I think she needs a hemorrhoidectomy. She has become symptomatic from it. She has not been able to afford the hydrocortisone 25 mg suppositories and she did not procure the hemorrhoid cream with applicator or use that either, so in any event, she is failing medical therapy at this time. PLAN: We will have her see General Surgery about hemorrhoidectomy, I think that probably formal hemorrhoidectomy would be indicated with the amount of inflammation interiorly. Obviously, we want to evaluate the mucosa for any dysplasia or irregularities as she has a family history of anal cancer in her brother. I see no evidence of bleeding disorders or signs of portal hypertension, and we did not see any other bleeding sites. So, she is going to get the blood transfusion that is ordered by the hospitalist and I have asked the General Surgery to look at the patient while she is here in the hospital as she probably needs that taken care of as the time it takes to arrange for outpatient setting, will probably lead back to her coming to the hospital with symptomatic anemia again for transfusions. Job ID: [id number]
== END 2018-09-25 14:12 | disposition home or self-care (01) ==
LOC: ERS 10:21 → T4-B 15:58
PROVIDERS: ADMIT Internal Medicine; ATTEND Internal Medicine
PROC: 06BY3ZC Excision of Hemorrhoidal Plexus, Percutaneous Approach (ICD-10-PCS; principal; 2018-09-24)
DX: K64.8 Other hemorrhoids (principal); D62 Acute posthemorrhagic anemia; E78.5 Hyperlipidemia, unspecified; K21.9 Gastro-esophageal reflux disease without esophagitis; F41.9 Anxiety disorder, unspecified; F32.9 Major depressive disorder, single episode, unspecified; E66.9 Obesity, unspecified; Z68.33 Body mass index [BMI] 33.0-33.9, adult; Z79.2 Long term (current) use of antibiotics; Z79.899 Other long term (current) drug therapy
CPT/HCPCS: 36415; 36430; 80048; 80053; 81003; 82728; 83540; 83550; 83690; 84443; 85025; 85610; 85730; 86850; 86900; 86901; 88304; 96365; 96366; G0378; J0670; J1100; J1756; J2001; J2250; J2405; J2704; J2710; J2916; J3010; J7050; P9016

== ENCOUNTER 2018-10-25 10:39 | Outpatient (CLI) | payer BC ==
[2018-10-25 12:38] LABS: #Eosinphils 0.1 thou/uL (0.0-0.7); #Lymphocytes 1.3 thou/uL (1.20-3.40); #Monocytes 0.3 thou/uL (0.11-0.59); #Neutrophils 3.2 thou/uL (1.40-6.50); %Basophils 0.2 % (0.0-1.0); %Eosinophils 1.4 % (0.0-10.0); %Monocytes 5.9 % (0.0-10.0); %Neutrophils 65.6 % (42.0-75.0); Hemoglobin 10.3 g/dL (12.0-16.0); Mean Corpuscular HGB CONC 33.5 g/dL (32.0-36.0); Mean Corpuscular Hemoglobin 30.9 pg (27.0-31.0); Mean Corpuscular Volume 92.2 fL (78.0-98.0); Mean Platelet Volume 7.8 fL (7.4-10.4); Platelet Count 207 thou/uL (130-400); RBC Distribution Width 14.9 % (11.5-14.5); Red Blood Cell (RBC) Count 3.34 mill/uL (4.20-5.40); White Blood Cell (WBC) Count 4.9 thou/uL (4.8-10.8)
--- NOTE | 2018-10-25 21:26 | EKG ---
Test Reason : Blood Pressure : / mmHG Vent. Rate : 081 BPM Atrial Rate : 081 BPM P-R Int : 142 ms QRS Dur : 086 ms QT Int : 396 ms P-R-T Axes : 061 059 042 degrees QTc Int : 460 ms Normal sinus rhythm Cannot rule out Anterior infarct , age undetermined Abnormal ECG No previous ECGs available Confirmed by YAYO GRACIA, DR. Echols ([id number]) on 10/25/2018 9:26:07 PM Referred By: ELLEN Confirmed By:DR. Onesimo ZEE MD
== END 2018-10-25 10:40 | disposition home or self-care (01) ==
LOC: LABBT 10:39
PROVIDERS: ATTEND Surgery
DX: Z01.818 Encounter for other preprocedural examination (principal); K64.9 Unspecified hemorrhoids
CPT/HCPCS: 85025; 93005; 93010

== ENCOUNTER 2018-10-28 08:34 | Day surgery (SDC) | payer BC ==
[2018-10-25 11:39] VITALS: BMI 32.5
[2018-10-28] MEDS ORDERED: cefOXitin 2 GM VIAL ONE (10:05)
[2018-10-28] MEDS ORDERED: Sodium Chloride 0.9% 100 ML ONE (10:05)
[2018-10-28] MEDS ORDERED: Lidocaine 2% PF 5 ML VIAL ONE (10:06)
[2018-10-28] MEDS ORDERED: Bupivacaine/Epinephrine 0.25% 30 ML VIAL ONE (10:06)
[2018-10-28] MEDS ORDERED: Fentanyl 100 MCG/2 ML VIAL ONE (10:12)
[2018-10-28] MEDS ORDERED: Bacitracin Zinc Ointment 30 gm TUBE ONE (11:00)
[2018-10-28] MEDS ORDERED: SUGAMMADEX SODIUM 200 MG/2 ML VIAL ONE (11:03)
[2018-10-28] MEDS ORDERED: Ketorolac Tromethamine 30 MG/ML VIAL ONE (11:32)
[2018-10-28] MEDS ORDERED: Dexamethasone 20 MG/5 ML VIAL ONE (11:32)
[2018-10-28] MEDS ORDERED: Rocuronium Bromide 10 MG/ML (10ML VIAL) ONE (11:32)
[2018-10-28] MEDS ORDERED: Ondansetron PF 4 MG/2 ML Vial ONE (11:32)
[2018-10-28] MEDS ORDERED: Lidocaine 1% PF 5 ML VIAL ONE (11:32)
[2018-10-28] MEDS ORDERED: PHENYLEPHRINE-NS 100 MCG/ML 10 ML SYRINGE ONE (11:32)
[2018-10-28] MEDS ORDERED: PROPOFOL 200 MG/20 ML VIAL ONE (11:32)
--- NOTE | 2018-10-28 11:46 | OP ---
DATE OF PROCEDURE: 10/28/2018 PREOPERATIVE DIAGNOSIS: Bleeding hemorrhoids. PROCEDURE PERFORMED: Open hemorrhoidectomy x3. INDICATIONS: A 63-year-old female 3 weeks ago underwent PPH, stapled hemorrhoidectomy with persistent hemorrhoidal bleeding. FINDINGS: Staple line was healing fine. All three columns were dilated. The left was a worse. There were primarily the internal component. DESCRIPTION OF PROCEDURE: After informed consent was obtained, the patient had undergone a mechanical bowel prep at home. She was given general endotracheal anesthesia and placed in the lithotomy position. The perianal region was prepped and draped in the usual fashion. Local anesthesia infiltrated subcutaneously and deep as a 4-quadrant anal block. The bivalved anal retractor was inserted within the anal canal. The left lateral complex appeared to be the worse, but also the right anterior and right posterior complexes were dilated. The left side was approached first. It was a fairly wide-based complex, had to take in 2 bites, grasped with an Allis clamp and excised, attempting to minimize any removal of anal mucosa. Using the LigaSure, a 2nd bite was also removed, more of the blood vessels. Then, the right anterior complex was grasped and excised and then the right posterior complex was excised. Hemorrhoids were sent to Pathology for further analysis. Hemostasis was achieved. Gel-Foam impregnated with bacitracin was inserted within the anal canal. Sterile bandage applied. The patient tolerated the procedure well, transferred to Recovery in good condition. Sponge and needle count verified correct x2. Job ID: [id number]
== END 2018-10-28 13:30 | disposition home or self-care (01) ==
LOC: SDC 08:34
PROVIDERS: ATTEND Surgery
PROC: 06BY3ZC Excision of Hemorrhoidal Plexus, Percutaneous Approach (ICD-10-PCS; principal; 2018-10-28)
DX: K64.8 Other hemorrhoids (principal); I10 Essential (primary) hypertension; K21.9 Gastro-esophageal reflux disease without esophagitis; E78.00 Pure hypercholesterolemia, unspecified; Z98.890 Other specified postprocedural states; Z79.899 Other long term (current) drug therapy
CPT/HCPCS: 88304; J0694; J1100; J1885; J2001; J2405; J2704; J3010; J7050